=== PATIENT | female | born 2000 | race Two or more races ===

== ENCOUNTER 2023-12-17 21:38 | Inpatient (IN) | payer OTHER ==
[~2023-12-17] VITALS: Ht 157.5 cm; Wt 83.5 kg
[~2023-12-17 21:38] MED LIST: ARIP5TAB37 PO; LAMO-24 PO
[2023-12-18] MEDS ORDERED: HALOPERIDOL 5 MG TABLET PO PRN (22:30)
[2023-12-18] MEDS ORDERED: LORazepam 2 MG TABLET PO PRN (22:30)
[2023-12-18] MEDS ORDERED: ZOLPIDEM TARTRATE 10 MG TABLET PO PRN (22:30)
[2023-12-19 00:18] VITALS: BP 107/80; PULSE 97; RESP 18; TEMP 97.8; O2SAT 98
[2023-12-19] MEDS ORDERED: MAGNESIUM HYDROXIDE SUSPENSION 30 ML UDCUP PO PRN (05:30)
[2023-12-19] MEDS ORDERED: CloNIDine HCL 0.1 MG TABLET PO PRN (05:30)
[2023-12-19] MEDS ORDERED: OMEPRAZOLE 20 MG CAPSULE PO PRN (05:30)
[2023-12-19] MEDS ORDERED: ACETAMINOPHEN 325 MG TABLET PO PRN (05:30)
[2023-12-19] MEDS ORDERED: LOPERAMIDE HCL 2 MG CAPSULE PO PRN (05:30)
[2023-12-19] MEDS ORDERED: DOCUSATE SODIUM 100 MG CAPSULE PO PRN (05:30)
[2023-12-19] MEDS ORDERED: MAG HYDROX/ALUMINUM HYD/SIMETH ES 30 ML SUSPENSION UDCUP PO PRN (05:30)
[2023-12-19] MEDS ORDERED: BACITRACIN 28 GM OINTMENT TP PRN (05:30)
[2023-12-19] MEDS ORDERED: ALBUTEROL SULFATE HFA 90 MCG/PUFF 8 GM INHALER IH PRN (05:30)
[2023-12-19] MEDS ORDERED: IBUPROFEN 600 MG TABLET PO PRN (05:30)
[2023-12-19] MEDS ORDERED: ONDANSETRON HCL 4 MG TABLET PO PRN (05:30)
[2023-12-19] MEDS ORDERED: PETROLATUM,WHITE 28 GM JELLY TP PRN (05:30)
[2023-12-19] MEDS ORDERED: BENZOCAINE/MENTHOL LOZENGE PO PRN (05:30)
[2023-12-19 09:05] VITALS: BP 127/85; PULSE 95; RESP 18; TEMP 97.2; O2SAT 98
[2023-12-19] MEDS: DIVALPROEX SODIUM 500 MG DR TABLET PO SCH (16:52)
[2023-12-19] MEDS: LITHIUM CARBONATE 300 MG CAPSULE PO SCH (16:52)
[2023-12-19 21:47] VITALS: PULSE 94; RESP 18; O2SAT 97
[2023-12-19 21:50] VITALS: PULSE 94; RESP 18; O2SAT 97
[2023-12-19 22:17] VITALS: BP 128/85; PULSE 100; RESP 18; TEMP 97.7; O2SAT 96
[2023-12-20 08:40] VITALS: BP 132/76; PULSE 95; RESP 17; TEMP 97.7; O2SAT 95
[2023-12-20 21:22] VITALS: PULSE 99; RESP 18; O2SAT 99
[2023-12-20 22:21] VITALS: BP 131/82; PULSE 86; RESP 18; TEMP 97.8; O2SAT 99
[2023-12-21 09:57] VITALS: BP 129/80; PULSE 103; RESP 18; TEMP 97.2; O2SAT 98
[2023-12-21 20:42] VITALS: BP 121/69; PULSE 101; RESP 18; TEMP 97.7; O2SAT 98
[2023-12-22 11:04] VITALS: BP 131/79; PULSE 110; RESP 18; TEMP 97.3; O2SAT 100
[2023-12-22 20:35] VITALS: BP 126/83; PULSE 126; RESP 18; TEMP 98.2; O2SAT 96
[2023-12-22 22:35] VITALS: PULSE 87; RESP 18; O2SAT 99
[2023-12-23 07:15] LABS: LITHIUM 0.54 mmol/L (0.60-1.20)
[2023-12-23 08:34] VITALS: BP 129/97; PULSE 97; RESP 18; TEMP 97.2; O2SAT 99
[2023-12-23] MEDS ORDERED: LITH300C3 PO (13:57)
[2023-12-23] MEDS ORDERED: DIVA500T53 PO (13:58)
== END 2023-12-23 16:30 | disposition home or self-care (01) | DRG 885 ==
LOC: 3EI 12-18 22:37
PROVIDERS: ADMIT Psychiatry & Neurology Psychiatry; ATTEND Psychiatry & Neurology Psychiatry
PROC: GZHZZZZ Group Psychotherapy (ICD-10-PCS; principal; 2023-12-23)
DX: F31.9 Bipolar disorder, unspecified (principal); R45.851 Suicidal ideations; F99 Mental disorder, not otherwise specified; F41.9 Anxiety disorder, unspecified; K59.00 Constipation, unspecified; G47.00 Insomnia, unspecified; Z72.0 Tobacco use; Z79.899 Other long term (current) drug therapy
CPT/HCPCS: 80164; 80178; 94660

== ENCOUNTER 2023-12-18 00:19 | Emergency (ER) | payer OTHER ==
[~2023-12-18] VITALS: Ht 157.5 cm; Wt 87.0 kg
[2023-12-18 01:13] VITALS: TEMP 97.7
[2023-12-18 01:22] LABS: BASOPHILS % (AUTO) 0.9 % (0.0-2.0); EOSINOPHILS % (AUTO) 3.7 % (1.0-6.0); HEMATOCRIT 37.8 % (36-46); HEMOGLOBIN 13.4 g/dL (12.0-16.0); LYMPHOCYTES # (AUTO) 3.7 K/uL (1.0-4.8); LYMPHOCYTES % (AUTO) 35.6 % (22.0-44.0); MEAN CORPUSCULAR HGB CONC 35.6 G/dL (31.0-37.0); MEAN CORPUSCULAR VOLUME 90 fL (80-100); MONOCYTES # (AUTO) 0.7 K/uL (0.1-1.0); MONOCYTES % (AUTO) 6.8 % (2.0-9.0); NEUTROPHILS # (AUTO) 5.5 K/uL (1.8-7.7); PLATELET COUNT (AUTO) 450 K/uL (150-450); RED BLOOD CELL COUNT(AUTO) 4.21 MIL/uL (4.00-5.20); RED CELL DISTRIBUTION WIDTH 12.4 % (11.5-14.5); WHITE BLOOD COUNT (AUTO) 10.4 K/uL (4.5-11.0)
[2023-12-18 01:31] LABS: ANION GAP 10 mmol/L (8-16); CALCIUM, TOTAL 9.4 mg/dL (8.8-10.5); CARBON DIOXIDE 27 mmol/L (22-29); CHLORIDE 101 mmol/L (98-107); GLOMERULAR FILTR. RATE CALC > 60 mL/min (>60); GLUCOSE,RANDOM 113 mg/dL (70-110); POTASSIUM 3.9 mmol/L (3.5-5.1); SODIUM SERUM 138 mmol/L (136-145); UREA NITROGEN, BLOOD 14 mg/dL (7-18)
[2023-12-18 01:39] LABS: ALCOHOL, BLOOD (SERUM) < 3 mg/dL (0-10)
[2023-12-18 02:47] LABS: COVID AG,FIA SOURCE NASAL SWAB
[2023-12-18 03:12] LABS: SARS-COV2 (COVID) ANTIGEN,FIA Negative (Negative)
[2023-12-18 14:06] VITALS: BP 111/68; PULSE 76; RESP 16
== END 2023-12-18 22:16 | disposition home or self-care (01) ==
LOC: EMS 00:20 → 3EI 21:45 → UNDOADMIN 21:45 → EMS 22:16
DX: F32.9 Major depressive disorder, single episode, unspecified (principal); R45.851 Suicidal ideations; Z20.822 Contact with and (suspected) exposure to COVID-19
CPT/HCPCS: 99283; 87426; 80048; 84703; 85025; 36415; G0480